=== PATIENT | female | born 1965 | race Hispanic/Latino ===

== ENCOUNTER 2018-12-19 15:19 | Emergency (ER) | payer BC ==
[2018-12-19] MEDS ORDERED: ASPIRIN 325 MG TABLET ONE (15:43)
[2018-12-19 15:51] LABS: BASOPHILS % (AUTO) 0.9 % (0.0-5.0); EOSINOPHILS % (AUTO) 1.5 % (0.0-8.0); HEMATOCRIT 41.1 % (36-48); MEAN CORPUSCULAR HEMOGLOBIN 29.1 pg (27.0-33.0); MEAN CORPUSCULAR VOLUME 88.2 fL (79-99); MONOCYTES % (AUTO) 7.8 % (3.0-13.0); NEUTROPHILS % (AUTO) 49.8 % (40.0-77.0); NUCLEATED RED BLOOD CELLS 0.1 % (0.0-0.19); PLATELET COUNT (AUTO) 312 K/uL (130-400); RED BLOOD CELL COUNT(AUTO) 4.65 MIL/uL (4.00-5.50); RED CELL DISTRIBUTION WIDTH 15.1 % (11.0-15.5)
[2018-12-19 16:03] LABS: INR 1.02 (0.85-1.15); PARTIAL THROMBOPLASTIN TIME 25.1 SEC (26.3-35.5); PROTHROMBIN TIME 10.7 SEC (9.6-11.6)
[2018-12-19 16:04] LABS: POTASSIUM 3.3 mmol/L (3.5-5.1)
[2018-12-19 16:14] LABS: ALBUMIN 3.6 g/dL (3.5-5.0); BILIRUBIN,TOTAL 0.3 mg/dL (0.2-1.0); TOTAL PROTEIN, SERUM 7.4 g/dL (6.0-8.3)
[2018-12-19] MEDS ORDERED: IPRATROPIUM/ALBUTEROL SULFATE 3 ML SOLUTION IH ONE (16:33)
== END 2018-12-19 17:23 | disposition home or self-care (01) ==
LOC: EDH 15:19
DX: J40 Bronchitis, not specified as acute or chronic (principal); R07.89 Other chest pain; E78.00 Pure hypercholesterolemia, unspecified
CPT/HCPCS: 36415; 71045; 80053; 82550; 84484; 85025; 85610; 85730; 93005; 94640

== ENCOUNTER 2019-07-05 08:25 | Inpatient (IN) | payer BC ==
[~2019-07-05] VITALS: Ht 154.9 cm; Wt 81.6 kg
[2019-07-05] MEDS ORDERED: MORPHINE SULFATE 4 MG/1ML SYG ONE (08:51)
[2019-07-05 09:16] LABS: BASOPHILS % (AUTO) 0.3 % (0.0-5.0); EOSINOPHILS % (AUTO) 0.1 % (0.0-8.0); HEMATOCRIT 38.7 % (36-48); LYMPHOCYTES % (AUTO) 10.7 % (21.0-51.0); MEAN CORPUSCULAR HEMOGLOBIN 28.9 pg (27.0-33.0); MEAN CORPUSCULAR HGB CONC 33.3 g/dL (32.0-36.0); MEAN CORPUSCULAR VOLUME 86.8 fL (79-99); MONOCYTES % (AUTO) 3.8 % (3.0-13.0); NEUTROPHILS % (AUTO) 84.7 % (40.0-77.0); PLATELET COUNT (AUTO) 313 K/uL (130-400); RED BLOOD CELL COUNT(AUTO) 4.46 MIL/uL (4.00-5.50); RED CELL DISTRIBUTION WIDTH 13.9 % (11.0-15.5); WHITE BLOOD COUNT (AUTO) 10.7 K/uL (4.8-10.8)
[2019-07-05 09:33] LABS: CREATININE 0.8 mg/dL (0.5-1.5); POTASSIUM 3.4 mmol/L (3.5-5.1)
[2019-07-05 09:36] LABS: INR 0.99 (0.85-1.15); PARTIAL THROMBOPLASTIN TIME 25.7 SEC (26.3-35.5); PROTHROMBIN TIME 10.7 SEC (9.6-11.6)
[2019-07-05 09:38] LABS: ALBUMIN 4.2 g/dL (3.5-5.0); BILIRUBIN,TOTAL 0.3 mg/dL (0.2-1.0)
[2019-07-05] MEDS ORDERED: HYDROMORPHONE 1 MG/1 ML AMP ONE (11:17)
[2019-07-05 13:05] VITALS: BP 138/77
[2019-07-05] MEDS ORDERED: ONDANSETRON HCL 4 MG/2 ML VIAL IVP PRN (14:30)
[2019-07-05] MEDS: SODIUM CHLORIDE 0.9% 1000ML 1,000 ML IV SCH (14:33)
[2019-07-05] MEDS: HYDROMORPHONE HCL 0.5 MG/0.5 ML ML IVP PRN ×3 (14:34→21:30)
[2019-07-05] MEDS ORDERED: LOSA1TAB54 PO (15:24)
[2019-07-05] MEDS ORDERED: OMEP40CA13 PO (15:24)
[2019-07-05] MEDS ORDERED: FENO145T26 PO (15:24)
[2019-07-05] MEDS ORDERED: THIAMINE HCL 100 MG TABLET PO ONE (15:30)
[2019-07-05 16:00] VITALS: BP 149/72
[2019-07-05 19:00] VITALS: BP 143/69
[2019-07-06] VITALS: BP 145/85
[2019-07-06] MEDS: SODIUM CHLORIDE 0.9% 1000ML 1,000 ML IV SCH ×3 (00:28→21:29)
[2019-07-06] MEDS: HYDROMORPHONE HCL 0.5 MG/0.5 ML ML IVP PRN ×7 (00:30→21:31)
[2019-07-06 03:46] VITALS: BP 163/87
[2019-07-06] MEDS ORDERED: LIDOCAINE HCL-MPF 1% 2ML VIAL IV PRN (07:45)
[2019-07-06] MEDS ORDERED: POTASSIUM CHLORIDE 20MEQ/100ML 100 ML IV PRN (07:45)
[2019-07-06] MEDS ORDERED: POTASSIUM CHLORIDE 10% ELIXIR 20 MEQ/15 ML UDCUP PO PRN (07:45)
[2019-07-06 08:00] VITALS: BP 148/69
[2019-07-06 08:52] LABS: HEMATOCRIT 35.9 % (36-48); MEAN CORPUSCULAR HEMOGLOBIN 28.8 pg (27.0-33.0); MEAN CORPUSCULAR HGB CONC 32.9 g/dL (32.0-36.0); MEAN CORPUSCULAR VOLUME 87.6 fL (79-99); RED BLOOD CELL COUNT(AUTO) 4.1 MIL/uL (4.00-5.50); RED CELL DISTRIBUTION WIDTH 14.1 % (11.0-15.5); WHITE BLOOD COUNT (AUTO) 6.8 K/uL (4.8-10.8)
[2019-07-06] MEDS ORDERED: NON-FORMULARY MEDICATION 1 EACH (Losartan/Hydrochlorothiazide (Losartan-Hctz 100-25 mg Tab PO SCH (09:00)
[2019-07-06 09:19] LABS: ALBUMIN 3.6 g/dL (3.5-5.0); BILIRUBIN,TOTAL 0.7 mg/dL (0.2-1.0); CREATININE 0.7 mg/dL (0.5-1.5); POTASSIUM 3.4 mmol/L (3.5-5.1); TOTAL PROTEIN, SERUM 7.1 g/dL (6.0-8.3)
[2019-07-06] MEDS: LOSARTAN 100 MG TABLET PO SCH (09:46)
[2019-07-06] MEDS: FENOFIBRATE NANOCRYSTALLIZED 145 MG TAB PO SCH (09:47)
[2019-07-06] MEDS: HYDROCHLOROTHIAZIDE 25 MG TABLET PO SCH (09:47)
[2019-07-06] MEDS: PANTOPRAZOLE SODIUM 40 MG TABLET.DR PO SCH (09:47)
[2019-07-06 12:00] VITALS: BP 155/76
[2019-07-06] MEDS: POTASSIUM CHLORIDE 20 MEQ ERTAB PO PRN ×2 (15:10→21:31)
[2019-07-06 16:00] VITALS: BP 137/78
--- NOTE | 2019-07-06 16:59 | NUR ---
danyel note met with patient and resides at home alone, independent with adls and ambulation. no dme. lives in upstairs apartment. 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 Addendum: 07/06/19 at 1706 by KAYE DAHL CM Amended: Links added.
[2019-07-06 19:00] VITALS: BP 155/90
[2019-07-07] VITALS (7 sets, daily range): BP systolic 117–154; BP diastolic 67–86
[2019-07-07] MEDS: HYDROMORPHONE HCL 0.5 MG/0.5 ML ML IVP PRN ×7 (00:42→20:11)
[2019-07-07] MEDS: SODIUM CHLORIDE 0.9% 1000ML 1,000 ML IV SCH ×2 (05:39→15:08)
[2019-07-07] MEDS: POTASSIUM CHLORIDE 20 MEQ ERTAB PO PRN ×2 (06:54→10:01)
[2019-07-07] MEDS ORDERED: ACETAMINOPHEN 325 MG TAB PO PRN (07:45)
[2019-07-07] MEDS: LOSARTAN 100 MG TABLET PO SCH (08:23)
[2019-07-07] MEDS: PANTOPRAZOLE SODIUM 40 MG TABLET.DR PO SCH (08:23)
[2019-07-07] MEDS: HYDROCHLOROTHIAZIDE 25 MG TABLET PO SCH (08:23)
[2019-07-07] MEDS: FENOFIBRATE NANOCRYSTALLIZED 145 MG TAB PO SCH (08:23)
[2019-07-08] VITALS (25 sets, daily range): BP systolic 115–155; BP diastolic 58–85
[2019-07-08] MEDS: HYDROMORPHONE HCL 0.5 MG/0.5 ML ML IVP PRN ×3 (01:18→20:23)
[2019-07-08] MEDS: LOSARTAN 100 MG TABLET PO SCH (08:48)
[2019-07-08] MEDS: FENOFIBRATE NANOCRYSTALLIZED 145 MG TAB PO SCH (08:48)
[2019-07-08] MEDS: HYDROCHLOROTHIAZIDE 25 MG TABLET PO SCH (08:48)
[2019-07-08] MEDS: PANTOPRAZOLE SODIUM 40 MG TABLET.DR PO SCH (08:48)
[2019-07-08] MEDS: SODIUM CHLORIDE 0.9% 1000ML 1,000 ML IV SCH ×2 (11:10→12:30)
[2019-07-08] MEDS ORDERED: LACTATED RINGERS 1000ML 1,000 ML IV ONE (11:10)
[2019-07-08] MEDS ORDERED: ONDANSETRON HCL 4 MG/2 ML VIAL ONE (11:34)
[2019-07-08] MEDS ORDERED: DEXAMETHASONE SOD PHOSPHATE 10MG/ML 1ML VIAL ONE (11:34)
[2019-07-08] MEDS ORDERED: GLYCOPYRROLATE 1 MG/5 ML SYRINGE ONE (11:34)
[2019-07-08] MEDS ORDERED: NEOSTIGMINE 5MG/5ML SYR IV ONE (11:34)
[2019-07-08] MEDS ORDERED: MIDAZOLAM HCL 1 MG/ML 2ML VIAL ONE (11:34)
[2019-07-08] MEDS ORDERED: LIDOCAINE PF 2% 5ML ABBOJECT ONE (11:34)
[2019-07-08] MEDS ORDERED: FENTANYL CITRATE PF 50 MCG/1 ML 2ML VIAL ONE ×3 (11:35→14:00)
[2019-07-08] MEDS ORDERED: ROCURONIUM 10MG/1ML SYR 10 MG/ML ML ONE (11:35)
[2019-07-08] MEDS ORDERED: PROPOFOL 10 MG/ML 20ML VIAL IV ONE (11:35)
[2019-07-08] MEDS ORDERED: ROPIVACAINE 0.5% 5MG/ML 30ML IJ ONE (11:40)
[2019-07-08] MEDS ORDERED: CEFAZOLIN SODIUM 1 GM VIAL ONE (13:02)
[2019-07-08] MEDS ORDERED: HYDRALAZINE HCL 20 MG/ML VIAL ONE (14:00)
[2019-07-08] MEDS ORDERED: MEPERIDINE-PF 25 MG/ML SYG ONE (14:27)
[2019-07-09] MEDS: HYDROMORPHONE HCL 0.5 MG/0.5 ML ML IVP PRN ×5 (00:34→20:27)
[2019-07-09 03:48] VITALS: BP 128/73
[2019-07-09 07:16] LABS: MEAN CORPUSCULAR HEMOGLOBIN 29.1 pg (27.0-33.0); MEAN CORPUSCULAR HGB CONC 32.6 g/dL (32.0-36.0); MEAN CORPUSCULAR VOLUME 89.2 fL (79-99); RED BLOOD CELL COUNT(AUTO) 3.81 MIL/uL (4.00-5.50); WHITE BLOOD COUNT (AUTO) 8.1 K/uL (4.8-10.8)
[2019-07-09 07:25] LABS: CREATININE 0.7 mg/dL (0.5-1.5); POTASSIUM 3.8 mmol/L (3.5-5.1)
[2019-07-09 08:45] VITALS: BP 131/65
[2019-07-09] MEDS: PANTOPRAZOLE SODIUM 40 MG TABLET.DR PO SCH (09:39)
[2019-07-09] MEDS: LOSARTAN 100 MG TABLET PO SCH (09:40)
[2019-07-09] MEDS: FENOFIBRATE NANOCRYSTALLIZED 145 MG TAB PO SCH (09:41)
[2019-07-09] MEDS: HYDROCHLOROTHIAZIDE 25 MG TABLET PO SCH (09:41)
[2019-07-09] MEDS: HYDROCODONE/ACETAMINOPHEN 5/325 MG TAB PO PRN (10:24)
[2019-07-09 11:32] VITALS: BP 137/81
--- NOTE | 2019-07-09 13:48 | NUR ---
DC PLAN VISITED WITH PATIENT. PATIENT SAID SHE IS PLANNING ON GOING HOME BUT SISTER LIVES NEAR BY AND OTHER SISTER WILL BE HELPING HER AT NIGHT. SAID WILL NEED WALKER. SENDING MESSAGE TO MD FOR ORDER. PACKET READY ON DESK FOR STANDARD WALKER NO WHEELS. GALLO RECEIVED FOR ANY IN NETWORK. Addendum: 07/09/19 at 1351 by CAROLYNE TOLEDO RN CM Amended: Links added.
--- NOTE | 2019-07-09 14:35 | NUR ---
CHANGED DSG PER MD ORDER. USING CLEAN TECHNIQUE REMOVED OLD DRESSING FROM RT LEG, SWELLING NOTED. USING ASEPTIC TECHNIQUE CLEANSED WITH STERILE WATER. SU INTACT. SMALL AMOUNT OF SEROSANGUINEOUS DRAINAGE NOTED. APPLIED XEROFORM OVER WOUNDS, COVERED WITH DRY 4X4 OVER AND WRAPPED WITH KERLIX APPLIED JOHN WRAP AROUND THE RT FOOT/ANKLE AND PLACED RT LEG IN IMMOBILIZER BOOT. PT TOLERATED WELL. ASSESSED CIRCULATION TO RT FOOT. WILL CONTINUE TO MONITOR.
[2019-07-09 16:47] VITALS: BP 143/71
[2019-07-09] MEDS: SODIUM CHLORIDE 0.9% 1000ML 1,000 ML IV SCH (18:30)
[2019-07-09 20:04] VITALS: BP 147/80
[2019-07-10 00:04] VITALS: BP 146/76
[2019-07-10 04:12] VITALS: BP 162/90
[2019-07-10] MEDS: LOSARTAN 100 MG TABLET PO SCH (05:40)
[2019-07-10 08:21] VITALS: BP 148/61
[2019-07-10] MEDS: FENOFIBRATE NANOCRYSTALLIZED 145 MG TAB PO SCH (09:05)
[2019-07-10] MEDS: HYDROCHLOROTHIAZIDE 25 MG TABLET PO SCH (09:08)
[2019-07-10] MEDS: PANTOPRAZOLE SODIUM 40 MG TABLET.DR PO SCH (09:09)
[2019-07-10 11:23] VITALS: BP 157/82
--- NOTE | 2019-07-10 13:09 | NUR ---
DC PLAN INFO SENT TO [facility]. RECEIVED GOT ORDER TO SIGN. ROUNDED AT 6AM. CALLED OFFICE MULTIPLE TIMES NO ANSWER. LEFT MESSAGES. FAXED ORDER TO OFFICE. PENDING MD TO SIGN TO GET WALKER FOR PATIENT. LET DIRECTOR KNOW. Addendum: 07/10/19 at 1312 by CAROLYNE TOLEDO RN CM Amended: Links added.
[2019-07-10] MEDS: HYDROCODONE/ACETAMINOPHEN 5/325 MG TAB PO PRN (15:27)
[2019-07-10 16:37] VITALS: BP 151/82
--- NOTE | 2019-07-10 17:40 | NUR ---
PER MD ORDER DC INSTRUCTIONS GIVEN TO PT. USING CLEAN TECHNIQUE REMOVED PIV, TIP INTACT. TEACHING DONE ON INCISION CLEANING AND DRESSING CHANGES. INFORMED PT ON FOLLOW UP APPTS. STATES UNDERSTANDING.
--- NOTE | 2019-07-11 09:02 | NUR ---
DASH MYRICK SAID THAT THEY COULD DELIVER WALKER TO HOUSE. SINCE THEIR COMPRESSOR SERVICE TECHNICIAN HAD ALREADY LEFT FOR THE DAY. PATIENT SAID THEY COULD BRING WALKER BACK THAT WE LEND. PERMISSION GIVEN BY DIRECTOR TO LEND WALKER. CONOR FALCON [phone] COUSIN WHO WILL BRING WALKER BACK. Addendum: 07/11/19 at 0911 by CAROLYNE TOLEDO RN CM Amended: Links added.
== END 2019-07-10 18:30 | disposition home or self-care (01) | DRG 493 ==
LOC: EDH 08:25 → OBSVTOIN 09:50 → EDHIP 09:50 → 3DH 12:53
PROVIDERS: ADMIT Internal Medicine; ATTEND Internal Medicine
PROC: 0QSG04Z Reposition Right Tibia with Internal Fixation Device, Open Approach (ICD-10-PCS; principal; 2019-07-05)
PROC: BW1C1ZZ Fluoroscopy of Lower Extremity using Low Osmolar Contrast (ICD-10-PCS; 2019-07-05)
DX: S82.851A Displaced trimalleolar fracture of right lower leg, initial encounter for closed fracture (principal); D62 Acute posthemorrhagic anemia; E78.5 Hyperlipidemia, unspecified; I10 Essential (primary) hypertension; E87.6 Hypokalemia; K21.9 Gastro-esophageal reflux disease without esophagitis; W19.XXXA Unspecified fall, initial encounter; Y93.89 Activity, other specified; Y92.89 Other specified places as the place of occurrence of the external cause; Y99.8 Other external cause status
CPT/HCPCS: 36415; 71045; 73610; 80048; 80053; 84132; 85025; 85027; 85610; 85730; 93005; 97039; G0378; J0360; J0690; J1100; J1170; J2001; J2175; J2250; J2270; J2405; J2704; J2710; J2795; J3010; J3490; J7030; J7120

== ENCOUNTER → 2019-07-16 | Outpatient (CLI) | payer BC ==
[~2019-07-16] MED LIST: FENO145T26 PO; LOSA1TAB54 PO; OMEP40CA13 PO
[2019-07-16 15:29] VITALS: BP 120/77
== END | disposition home or self-care (01) ==
LOC: WHH 13:30
PROVIDERS: ATTEND Specialist
DX: T84.89XA Other specified complication of internal orthopedic prosthetic devices, implants and grafts, initial encounter (principal); I10 Essential (primary) hypertension; K21.9 Gastro-esophageal reflux disease without esophagitis; E66.9 Obesity, unspecified; E78.5 Hyperlipidemia, unspecified; Y83.2 Surgical operation with anastomosis, bypass or graft as the cause of abnormal reaction of the patient, or of later complication, without mention of misadventure at the time of the procedure; Y92.89 Other specified places as the place of occurrence of the external cause
CPT/HCPCS: 99215

== ENCOUNTER 2019-07-30 13:15 | Outpatient (CLI) | payer BC ==
[2019-07-30 15:03] VITALS: BP 126/81
== END 2019-07-30 15:35 | disposition home or self-care (01) ==
LOC: WHH 13:15
PROVIDERS: ATTEND Specialist
DX: T81.89XD Other complications of procedures, not elsewhere classified, subsequent encounter (principal); I10 Essential (primary) hypertension; K21.9 Gastro-esophageal reflux disease without esophagitis; E66.9 Obesity, unspecified; E78.5 Hyperlipidemia, unspecified; Y83.8 Other surgical procedures as the cause of abnormal reaction of the patient, or of later complication, without mention of misadventure at the time of the procedure
CPT/HCPCS: 99214

== ENCOUNTER → 2019-10-20 | Outpatient (CLI) | payer BC | END | disposition home or self-care (01) | LOC: OIH 13:11 | PROVIDERS: ATTEND Internal Medicine | DX: S92.515A Nondisplaced fracture of proximal phalanx of left lesser toe(s), initial encounter for closed fracture (principal); S93.602A Unspecified sprain of left foot, initial encounter; X58.XXXA Exposure to other specified factors, initial encounter; Y93.89 Activity, other specified; Y92.89 Other specified places as the place of occurrence of the external cause; Y99.8 Other external cause status | CPT/HCPCS: 73620 ==

== ENCOUNTER → 2020-05-24 | Outpatient (CLI) | payer BC | END | disposition home or self-care (01) | LOC: RAH 14:09 | PROVIDERS: ATTEND Internal Medicine | DX: Z12.31 Encounter for screening mammogram for malignant neoplasm of breast (principal) | CPT/HCPCS: 77067 ==

== ENCOUNTER → 2020-07-22 | Outpatient (CLI) | payer BC | END | disposition home or self-care (01) | LOC: RAH 09:16 | PROVIDERS: ATTEND Internal Medicine | DX: M25.532 Pain in left wrist (principal); W19.XXXA Unspecified fall, initial encounter; Y93.89 Activity, other specified; Y92.89 Other specified places as the place of occurrence of the external cause; Y99.8 Other external cause status | CPT/HCPCS: 73100 ==

== ENCOUNTER 2023-01-16 05:24 | Emergency (ER) | payer BC ==
[~2023-01-16] VITALS: Ht 154.9 cm; Wt 82.6 kg
[~2023-01-16 05:24] MED LIST changes: -OMEP40CA13 PO; +OMEP40CA21 PO
[2023-01-16 05:53] LABS: RAPID GROUP A STREP negative (NEGATIVE)
[2023-01-16 05:57] LABS: SARS-CoV-2, RNA, NAAT NEGATIVE SARS CoV-2 (NEGATIVE)
[2023-01-16 06:03] LABS: INFLUENZA TYPE A Negative For Type A (NEGATIVE); INFLUENZA TYPE B Negative For Type B (NEGATIVE)
[2023-01-16 06:21] VITALS: PULSE 89; RESP 14
[2023-01-16 06:23] LABS: BASOPHILS # (AUTO) 0.05 K/uL (0.00-0.20); BASOPHILS % (AUTO) 0.7 % (0.0-5.0); EOSINOPHILS # (AUTO) 0.08 K/uL (0.00-0.70); EOSINOPHILS % (AUTO) 1.1 % (0.0-8.0); IMMATURE GRANULOCYTE ABSOLUTE 0.03 K/uL (0-1); LYMPHOCYTES # (AUTO) 1.9 K/uL (1.0-4.8); LYMPHOCYTES % (AUTO) 25.7 % (21.0-51.0); MEAN CORPUSCULAR HEMOGLOBIN 28.1 pg (27.0-33.0); MEAN CORPUSCULAR HGB CONC 33.4 g/dL (32.0-36.0); MONOCYTES # (AUTO) 0.5 K/uL (0.1-1.0); MONOCYTES % (AUTO) 6.9 % (3.0-13.0); NEUTROPHILS # (AUTO) 4.9 K/uL (1.8-7.7); NEUTROPHILS % (AUTO) 65.2 % (40.0-77.0); PLATELET COUNT (AUTO) 283 K/uL (130-400); RED BLOOD CELL COUNT(AUTO) 4.88 MIL/uL (4.00-5.50); RED CELL DISTRIBUTION WIDTH 15.1 % (11.0-15.5); WHITE BLOOD COUNT (AUTO) 7.6 K/uL (4.8-10.8)
[2023-01-16] MEDS ORDERED: 0.9%NACL 1000ML 1,000 ML IV ONE (06:30)
[2023-01-16] MEDS ORDERED: IPRATROPIUM/ALBUTEROL SULFATE 3 ML SOLUTION IH ONE (06:30)
[2023-01-16] MEDS ORDERED: SOLU-MEDROL 125MG VIAL IVP ONE (06:30)
[2023-01-16 06:31] LABS: ALBUMIN 3.6 g/dL (3.5-5.0); CREATININE 0.7 mg/dL (0.5-1.5)
[2023-01-16 06:35] LABS: BILIRUBIN,TOTAL 0.4 mg/dL (0.2-1.0); TOTAL PROTEIN, SERUM 7.7 g/dL (6.0-8.3)
[2023-01-16 06:57] VITALS: BP 138/79; PULSE 110; RESP 16; O2SAT 98
[2023-01-16] MEDS ORDERED: POTASSIUM BICARB/CIT AC 25 MEQ TABLET.EFF PO ONE (07:00)
[2023-01-16] MEDS ORDERED: ALBUHFA IH (07:16)
[2023-01-16] MEDS ORDERED: BROM118S48 PO (07:16)
[2023-01-16] MEDS ORDERED: AZIT250T9 PO ×2 (07:23)
== END 2023-01-16 07:31 | disposition home or self-care (01) ==
LOC: EDH 05:24
DX: J20.6 Acute bronchitis due to rhinovirus (principal); I10 Essential (primary) hypertension; K21.9 Gastro-esophageal reflux disease without esophagitis; Z90.710 Acquired absence of both cervix and uterus; Z20.822 Contact with and (suspected) exposure to COVID-19
CPT/HCPCS: 99284; 96374; 71045; 96361; 87635; 80053; 85025; 87880; 87804 ×2; 36415; 94640; C9803; J7030; J2930

== ENCOUNTER 2023-05-07 09:35 | Emergency (ER) | payer BC ==
[~2023-05-07] VITALS: Ht 154.9 cm; Wt 90.3 kg
[~2023-05-07 09:35] MED LIST changes: +ALBUHFA IH; +AZIT250T9 PO; +D-ME118S47 PO
[2023-05-07 10:23] LABS: BASOPHILS # (AUTO) 0.03 K/uL (0.00-0.20); BASOPHILS % (AUTO) 0.5 % (0.0-5.0); EOSINOPHILS # (AUTO) 0.09 K/uL (0.00-0.70); EOSINOPHILS % (AUTO) 1.5 % (0.0-8.0); IMMATURE GRANULOCYTE ABSOLUTE 0.02 K/uL (0-1); LYMPHOCYTES # (AUTO) 1.9 K/uL (1.0-4.8); LYMPHOCYTES % (AUTO) 31.9 % (21.0-51.0); MEAN CORPUSCULAR HEMOGLOBIN 28.2 pg (27.0-33.0); MEAN CORPUSCULAR HGB CONC 33.2 g/dL (32.0-36.0); MEAN CORPUSCULAR VOLUME 84.9 fL (79-99); MONOCYTES # (AUTO) 0.5 K/uL (0.1-1.0); MONOCYTES % (AUTO) 8.9 % (3.0-13.0); NEUTROPHILS # (AUTO) 3.4 K/uL (1.8-7.7); NEUTROPHILS % (AUTO) 56.9 % (40.0-77.0); PLATELET COUNT (AUTO) 281 K/uL (130-400); RED BLOOD CELL COUNT(AUTO) 4.83 MIL/uL (4.00-5.50); RED CELL DISTRIBUTION WIDTH 14.5 % (11.0-15.5); WHITE BLOOD COUNT (AUTO) 5.9 K/uL (4.8-10.8)
[2023-05-07 10:27] LABS: CREATININE 0.7 mg/dL (0.5-1.5); POTASSIUM 3.4 mmol/L (3.5-5.1)
[2023-05-07 10:32] LABS: ALBUMIN 3.8 g/dL (3.5-5.0); BILIRUBIN,TOTAL 0.7 mg/dL (0.2-1.0); MAGNESIUM 1.7 mg/dL (1.80-2.40); TOTAL PROTEIN, SERUM 8.2 g/dL (6.0-8.3)
[2023-05-07 10:38] LABS: INR <= 0.93 (0.85-1.15); PROTHROMBIN TIME 10.7 SEC (9.6-11.6)
[2023-05-07 10:40] LABS: PARTIAL THROMBOPLASTIN TIME 27.1 SEC (26.3-35.5)
[2023-05-07 11:08] LABS: APPEARANCE,URINE CLEAR (CLEAR); BILIRUBIN,URINE NEGATIVE (NEGATIVE); COLOR,URINE COLORLESS (YELLOW); GLUCOSE, URINE (UA) NEGATIVE (NEGATIVE); KETONES,URINE NEGATIVE (NEGATIVE); LEUKOCYTE ESTERASE ,URINE NEGATIVE Leu/uL (NEGATIVE); NITRATE,URINE NEGATIVE (NEGATIVE); PROTEIN,URINE NEGATIVE (NEGATIVE); UROBILINOGEN,URINE 0.2 mg/dL (0.2-1.0)
[2023-05-07 11:13] LABS: ADD UA MICROSCOPIC YES
[2023-05-07 11:42] LABS: SQUAMOUS EPITHELIAL CELL,UR RARE /HPF (0-2); WBC,URINE 0-1 /HPF (0-1)
[2023-05-07] MEDS ORDERED: CYCL10TA16 PO (12:27)
[2023-05-07] MEDS ORDERED: IBUP-2076 PO (12:27)
[2023-05-07] MEDS: METOCLOPRAMIDE 10 MG/2 ML VIAL IVP ONE (12:30)
[2023-05-07] MEDS: DiphenhydrAMINE HCL 50 MG/ML VIAL IV ONE (12:30)
[2023-05-07 12:45] VITALS: BP 142/88; PULSE 82; RESP 16; O2SAT 99
== END 2023-05-07 15:07 | disposition left against medical advice (07) ==
LOC: EDH 09:35
DX: R07.89 Other chest pain (principal); R51.9 Headache, unspecified; I10 Essential (primary) hypertension; K21.9 Gastro-esophageal reflux disease without esophagitis; F41.9 Anxiety disorder, unspecified; Z79.899 Other long term (current) drug therapy; Z98.890 Other specified postprocedural states; Z90.710 Acquired absence of both cervix and uterus
CPT/HCPCS: 36415; 71045; 80053; 81001; 83735; 83880; 84484; 85025; 85610; 85730; 93005

== ENCOUNTER → 2024-02-08 | Outpatient (CLI) | payer BC ==
[~2024-02-08] MED LIST changes: +BROM118S48 PO; +CYCL10TA16 PO; -D-ME118S47 PO; +GADOTERATE MEGLUMINE 10 MMOL/20 ML VIAL IV ONE; +IBUP-2076 PO
--- NOTE | 2024-02-11 15:18 | HMCIMG ---
MRI BREAST [facility] HISTORY: Ultrasound from January 15, 2024 and mammogram from January 08, 2024 COMPARISON: None TECHNIQUE: MRI of the bilateral breasts was performed utilizing multiple pulse sequences in axial, coronal and sagittal planes. Patient was given 20 cc of Clariscan through intravenous route. FINDINGS: Asymmetric fibroglandular tissue is seen in the retroareolar region of the left breast without enhancement. Short-term follow-up with ultrasound and mammogram would be helpful. No other mass lesion or abnormal enhancement. No definite nipple retraction or skin thickening otherwise. IMPRESSION: 1. Asymmetric fibroglandular tissue is seen in the retroareolar region of the left breast without enhancement. Short-term follow-up with ultrasound and mammogram would be helpful.
== END | disposition home or self-care (01) ==
LOC: RAH 13:24
PROVIDERS: ATTEND Internal Medicine
DX: R92.333 Mammographic heterogeneous density, bilateral breasts (principal); N64.89 Other specified disorders of breast; N63.20 Unspecified lump in the left breast, unspecified quadrant; R92.8 Other abnormal and inconclusive findings on diagnostic imaging of breast
CPT/HCPCS: 77049; A9575

== ENCOUNTER 2024-04-24 15:16 | Emergency (ER) | payer BC ==
[~2024-04-24] VITALS: Ht 154.9 cm; Wt 84.4 kg
[~2024-04-24 15:16] MED LIST changes: -GADOTERATE MEGLUMINE 10 MMOL/20 ML VIAL IV ONE
--- NOTE | 2024-04-24 15:36 | ERN ---
ED Note History of Present Illness Stated Complaint: SOB Chief Complaint: Shortness of Breath Time Seen by MD: 15:17 Dictation: Patient is a 58-year-old female with a history of asthma coming in today with shortness a breath on exertion, wheezing and using her inhaler more for the last 3-4 days. She denies fever chills nausea vomiting. No loss of taste or smell. She states her primary care doctor is , has not gone to see him regarding this current episode. Allergies: Coded Allergies: No Known Allergies (Unverified Allergy, Unknown, 07/05/19) Home Meds Active Scripts Budesonide (Budesonide) 0.5 Mg/2 Ml Ampul.neb, 0.5 MG IH BID for 7 Days, #14 UNIT Prov:DRE HENNING NP 04/24/24 Prednisone (Prednisone) 20 Mg Tablet, 1 TAB PO AD for 6 Days, #14 TAB 0 Refills TAKE 1 TAB BY MOUTH THREE TIMES PER DAY X3 DAYS, THEN TAKE 1 TAB BY MOUTH TWICE A DAY X2 DAYS, THEN TAKE 1 TAB BY MOUTH ONCE A DAY X1 DAY. Prov:DRE HENNING NP 04/24/24 Ibuprofen (Ibuprofen) 400 Mg Tablet, 400 MG PO TID PRN for PAIN, #30 TAB 0 Refills Prov:JACKLYN ALARCON DO 05/07/23 Cyclobenzaprine HCl (Flexeril) 10 Mg Tab, 10 MG PO TID PRN for muscle spasm for 7 Days, #21 TAB 0 Refills Prov:JACKLYN ALARCON DO 05/07/23 Azithromycin (Azithromycin) 250 Mg Tablet, 250 MG PO DAILY for 4 Days, #4 TAB Prov:ROSA MARIA DENTON MD 01/16/23 Azithromycin (Azithromycin) 250 Mg Tablet, 500 MG PO ONCE for 1 Day, #1 TAB Prov:ROSA MARIA DENTON MD 01/16/23 D-Methorphan Hb/P-Epd HCl/Bpm (Bromfed Dm Cough Syrup) 2 Mg-30 Mg-10 Mg/5 Ml Syrup, 118 ML PO BID, #60 ML Prov:ROSA MARIA DENTON MD 01/16/23 Albuterol Sulfate (Ventolin Hfa/Proventil Hfa/Proair Hfa) 90 Mcg Puff, 1-2 PUFF IH Q4H PRN for SHORTNESS OF BREATH for 5 Days, #1 INH 0 Refills PHARMACY TO DISPENSE 1 INHALER FOR USE Prov:ROSA MARIA DENTON MD 01/16/23 Reported Medications Fenofibrate Nanocrystallized (Fenofibrate) 145 Mg Tablet, 145 MG PO DAILY, TAB 07/05/19 Omeprazole (Omeprazole) 40 Mg Capsule.dr, 40 MG PO DAILY, CAP 07/05/19 Losartan/Hydrochlorothiazide (Losartan-Hctz 100-25 mg Tab) 1 Each Tablet, 1 EACH PO DAILY, TAB 07/05/19 Past Medical History Past Medical History: Anxiety, Asthma, GERD, Hypertension Surgical History: Hysterectomy, Other, BTL Surgical History Other: RT ANKLE SX Family History: HTN Social History: Negative History: Not Applicable RN Note Reviewed/Agreed w/PFSH: Yes Review of System Dictation CONSTITUTIONAL: Negative except for HPI HEAD/FACE: Negative except for HPI EENT: Negative except for HPI RESPIRATORY: Negative except for HPI SOB on exertion/wheezing GASTROINTESTINAL/ABDOMINAL: Negative except for HPI GENITOURINARY: Negative except for HPI MUSCULOSKELETAL: Negative except for HPI INTEGUMENTARY: Negative except for HPI NEUROLOGICAL/PSYCH: Negative except for HPI HEMATOLOGIC/LYMPHATIC: Negative except for HPI All Systems Negative, Except as noted above. 13 point review of systems assessed and all negative except for above. Initial Vital Sign VS Vital Signs Date Time Temp Pulse Resp B/P (MAP) Pulse Ox O2 Delivery O2 Flow Rate FiO2 04/24/24 15:22 99.7 98 18 154/93 98 0 04/24/24 16:16 Room Air* 21 Physical Exam Dictation Vital Signs reviewed General Appearance: Alert, oriented x 3, no acute distress, well developed, nourished. Head and Face: non-traumatic. Eyes: PERRL, pink conjunctivas, eyelid no trauma, anterior chamber with arcus senilis. Ears: Pinnas intact and no signs of trauma or erythema ear canals clear and no discharge TM no erythema Nose: No discharge, no bleeding. Oropharynx: Mouth normal, tongue pink, pharynx clear,no erythema, tonsils no exudates, no abscesses noted, mucous membrane moist Neck: Supple, non-tender, no thyromegaly, no masses, no JVD, no bruits Breast:Deferred Chest:No tenderness, no crepitus, no paradoxical movement, no retractions Lungs:Clear, well-ventilated, symmetric, bilateral expiratory wheezing in bilateral upper lobes. No retractions, mild tachypnea Heart: Regular rate, regular rhythm, no murmur, no gallops Vascular: no peripheral edema, Abdomen: Soft, positive bowel sounds, nondistended, no guarding, nontender, no rebound, no masses no hepatomegaly, no splenomegaly, no León's sign, no hernias. Rectal: Deferred Genital: Deferred Neurological: Normal speech, motor function intact, sensory function intact Musculoskeletal: Neck nontender, full range of motion, back nontender, full range of motion, Extremities: nontender, full range of motion Skin: Color pink, dry, no turgor, no rash, no lacerations, no abrasions, no contusions. Lymphatic: Deferred Results (Laboratory/Radiology) Laboratory/Radiology Laboratory Tests Test 04/24/24 15:25 Influenza Type A Antigen Negative For Type A Influenza Type B Antigen Negative For Type B SARS-CoV-2 Antigen (Rapid) PRESUMPTIVE NEGATIVE Labs Reviewed?: Yes ED Course ED Course Orders Procedure Category Date Status Time Covid19 (Sars Antigen LAB 04/24/24 Complete Rapid) 15:22 Influenza Type A & B, LAB 04/24/24 Complete Rapid 15:22 Dexamethasone 4mg/Ml PHA 04/24/24 Complete 1ml Vial (Dexametha 15:30 Albuterol 0.083% PHA 04/24/24 Complete 2.5mg/3ml (Proventil 15:30 Current Medications Medications (Trade) Dose Ordered Sig/Karan Route PRN Reason Start Time Stop Time Status Last Admin Dose Admin Albuterol Sulfate (Proventil 0.083% 2.5mg/3ml) 5 mg ONCE ONCE IH 04/24/24 15:30 04/24/24 15:31 DC 04/24/24 16:33 Dexamethasone Sodium Phosphate (dexaMETHasone 4MG/ML 1ML VIAL) 8 mg ONCE ONCE IM 04/24/24 15:30 04/24/24 15:31 DC 04/24/24 16:15 Vital Signs Date Time Temp Pulse Resp B/P (MAP) Pulse Ox O2 Delivery O2 Flow Rate FiO2 04/24/24 16:33 95 18 04/24/24 16:16 99.7 95 18 150/90 98 Room Air* 0 21 04/24/24 15:22 99.7 98 18 154/93 98 0 1655/bilateral breath sounds clear to auscultation respirations unlabored. Patient is satting 98-99% on room air discharged home with diagnosis of acute asthma exacerbation states she has albuterol at home. We will discharge her home with prednisone and budesonide and told to see her primary care doctor tomorrow or the next day without fail no work until cleared Medical Decision Making MDM Medical discharge making based on swabs for flu COVID and strep All swabs negative Patient given Decadron and albuterol nebulizer. States she feels markedly improved after treatment. DX & DISP Disposition: Discharge Departure Impression: Primary Impression: Asthma exacerbation Condition: Stable Scripts Budesonide (Budesonide) 0.5 Mg/2 Ml Ampul.neb 0.5 MG IH BID for 7 Days, #14 UNIT Prov: DRE HENNING NP 04/24/24 Prednisone (Prednisone) 20 Mg Tablet 1 TAB PO AD for 6 Days, #14 TAB 0 Refills TAKE 1 TAB BY MOUTH THREE TIMES PER DAY X3 DAYS, THEN TAKE 1 TAB BY MOUTH TWICE A DAY X2 DAYS, THEN TAKE 1 TAB BY MOUTH ONCE A DAY X1 DAY. Prov: DRE HENNING NP 04/24/24 Additional Instructions: Follow-up with primary care provider in 1 to 2 days. Take medications as directed here in the emergency room. Okay to continue home medications unless otherwise discussed during your visit in the emergency room today. Return to your nearest emergency room if symptoms worsen or if there is no improvement. Call [phone] if you need immediate assistance. Take Tylenol or Motrin [id number] as needed and if no contraindications are present. Increase oral hydration. A wound culture or urine culture was ordered here in the emergency room department please follow-up with primary care provider and advise them to get repeat ports from our facility. If you had any Cecil wrap/splints that were applied here, please do not remove them until you see your primary care or specialty. No work until cleared by your primary care doctor in 1-2 days. Use your albuterol nebulizer at home every4 hours while awake for the next two days. Take prednisone as directed until gone with food. Use budesonide twice a day for seven days as directed with your nebulizer machine. Referrals: TRACEY ARROYO MD (PCP) Time of Disposition: 16:56 I have reviewed the case, and I agree with, Diagnosis and Plan DRE HENNING NP Apr 24, 2024 15:36 JOSH BENNETT DO Apr 24, 2024 17:51
[2024-04-24 15:50] LABS: COVID19 (SARS ANTIGEN RAPID) PRESUMPTIVE NEGATIVE (NEGATIVE); INFLUENZA TYPE A Negative For Type A (NEGATIVE); INFLUENZA TYPE B Negative For Type B (NEGATIVE)
[2024-04-24] MEDS: dexaMETHasone SOD PHOSPHATE 4 MG/ML 1ML VIAL IM ONE (16:15)
[2024-04-24 16:16] VITALS: BP 150/90; TEMP 99.7; O2SAT 98
[2024-04-24 16:33] VITALS: PULSE 95; RESP 18
[2024-04-24] MEDS: ALBUTEROL 0.083% 2.5 MG/3 ML INH IH ONE (16:33)
[2024-04-24] MEDS ORDERED: BUDE0.5A3 IH (16:59)
[2024-04-24] MEDS ORDERED: PRED20TA3 PO (16:59)
== END 2024-04-24 17:07 | disposition home or self-care (01) ==
LOC: EDH 15:16
DX: J45.901 Unspecified asthma with (acute) exacerbation (principal); I10 Essential (primary) hypertension; K21.9 Gastro-esophageal reflux disease without esophagitis; Z79.899 Other long term (current) drug therapy; Z20.822 Contact with and (suspected) exposure to COVID-19; Z90.710 Acquired absence of both cervix and uterus
CPT/HCPCS: 99284; 87426; 87804 ×2; 96372; 94640; J1100